=== PATIENT | female | born 1995 ===

== ENCOUNTER → 2023-09-29 | Outpatient (CLI) | payer OTHER ==
[2023-09-30 12:01] LABS: Candida species (DNA Probe) Negative (NEGATIVE); G. vaginalis (DNA Probe) Positive (NEGATIVE); T. vaginalis (DNA Probe) Negative (NEGATIVE)
== END ==
LOC: LAB 17:53 → LAB SHORT 17:53
PROVIDERS: Family Medicine
DX: L29.3 Anogenital pruritus, unspecified (principal)
CPT/HCPCS: 87480; 87510; 87660

== ENCOUNTER 2023-10-11 10:32 | Emergency (ER) | payer OTHER ==
[~2023-10-11] VITALS: Ht 149.9 cm; Wt 88.9 kg
[2023-10-11 11:06] VITALS: BP 155/90
[2023-10-11] MEDS ORDERED: PALI6TA PO ×2 (11:09→11:10)
== END 2023-10-11 11:10 | disposition home or self-care (01) ==
LOC: ER 10:32
DX: Z76.0 Encounter for issue of repeat prescription (principal); Z79.899 Other long term (current) drug therapy
CPT/HCPCS: 99281